=== PATIENT | male | born 1950 | race Caucasian/White ===

== ENCOUNTER 2017-08-26 08:59 | Day surgery (SDC) | payer OTHER ==
[2017-08-21 12:32] VITALS: BMI 32.3
[2017-08-26] MEDS ORDERED: PROPOFOL 20 ML ONE ×2 (09:19)
[2017-08-26] MEDS ORDERED: LIDOCAINE HCL/PF 2% SDV 5ML VIAL ONE (09:21)
[2017-08-26 11:56] VITALS: TEMP 97.9
[2017-08-26 12:13] VITALS: BP 113/60; PULSE 58
== END 2017-08-26 12:15 | disposition home or self-care (01) ==
LOC: FASU-ENDO 08:59
PROVIDERS: ATTEND Internal Medicine Gastroenterology
PROC: 0DJD8ZZ Inspection of Lower Intestinal Tract, Via Natural or Artificial Opening Endoscopic (ICD-10-PCS; principal; 2017-08-26 11:14)
DX: Z12.11 Encounter for screening for malignant neoplasm of colon (principal)